=== PATIENT | female | born 1935 | race Caucasian/White ===

== ENCOUNTER 2020-02-16 10:40 | Observation (INO) ==
[2020-02-16] MEDS ORDERED: DOCUSATE SODIUM 100 MG CAPSULE PO PRN (12:17)
[2020-02-16] MEDS ORDERED: ACETAMINOPHEN 325 MG TABLET PO PRN (12:17)
[2020-02-16] MEDS ORDERED: ONDANSETRON 4 MG/2 ML VIAL IV PRN (12:17)
[2020-02-16] MEDS: SODIUM CHLORIDE 0.9% 1,000 ML IV SCH (14:33)
[2020-02-16] MEDS ORDERED: LORazepam 0.5 MG TABLET PO ONE (14:35)
[2020-02-16] MEDS ORDERED: ATORVASTATIN 10 MG TABLET PO SCH (21:00)
[2020-02-16] MEDS ORDERED: LOSARTAN 50 MG TABLET PO SCH (21:00)
[2020-02-16] MEDS ORDERED: hydroCHLOROthiazide 25 MG TABLET PO SCH (21:00)
[2020-02-17] MEDS: SODIUM CHLORIDE 0.9% 1,000 ML IV SCH (03:36)
[2020-02-17 06:29] LABS: Calcium 8.5 MG/DL (8.5-10.1); Osmolality,Calculated 257.9 MOS/KG (273-304)
[2020-02-17] MEDS ORDERED: MAGNESIUM CHLORIDE 64 MG TABLET PO SCH (09:00)
[2020-02-17] MEDS ORDERED: PANTOPRAZOLE 40 MG TABLET PO SCH (09:00)
[2020-02-17] MEDS ORDERED: METOPROLOL SUCCINATE XL 25 MG TABLET PO SCH (09:00)
[2020-02-17] MEDS ORDERED: POTASSIUM CHLORIDE 20 MEQ TABLET PO ONE (09:27)
[2020-02-17 11:51] VITALS: BP 130/63
== END 2020-02-17 14:40 | disposition home or self-care (01) ==
LOC: N.CT 10:40 → N.3E 12:28 → INTOOBSV 12:28
PROVIDERS: ADMIT Family Medicine; ATTEND Family Medicine